=== PATIENT | female | born 1975 | race Caucasian/White ===

== ENCOUNTER 2019-05-11 11:33 | Emergency (ER) | payer OTHER ==
[2019-05-11 11:41] VITALS: BP 125/85; PULSE 94; RESP 16; TEMP 99.1
--- NOTE | 2019-05-11 11:42 | ED ---
ENT HPI - General Chief complaint: Dental/Oral Stated complaint: dental abscess Time Seen by Provider: 05/11/19 11:41 Source: patient Mode of arrival: ambulatory Limitations: no limitations - History of Present Illness Initial comments: 43-year-old female presents today for chief complaint of right upper dental pain. Patient states that she has had dental pain for the past few days. She states that she has had history of abscess of feels as though she is developing one. She states that she does have a dental plate and that sometimes irritates the area. Patient denies any recent antibiotic use within the last month. Patient states that there is no drainage denies fevers difficulty swallowing breathing she denies swelling below the tongue of the neck or face, pt denies any flulike symptoms or rashes. Patient does complain of sharp pain that increases with palpation at tooth #5. Remaining review of system negative. - Related Data Previous Rx's Medication Instructions Recorded Ciprofloxacin HCl [Cipro] 500 mg PO Q12HR #20 tablet 02/16/15 traMADol HCl [Ultram] 50 - 100 mg PO Q6H PRN #20 tab 02/16/15 Penicillin V Potassium [Pen Vee K] 500 mg PO QID 7 Days #28 tablet 05/11/19 Allergies Allergy/AdvReac Type Severity Reaction Status Date / Time morphine Allergy Unknown Verified 05/11/19 11:39 Review of Systems ROS Statement: Those systems with pertinent positive or pertinent negative responses have been documented in the HPI. ROS Other: All systems not noted in ROS Statement are negative. Past Medical History Past Medical History: No Reported History History of Any Multi-Drug Resistant Organisms: None Reported Past Surgical History: Back Surgery, Tubal Ligation Past Psychological History: No Psychological Hx Reported Smoking Status: Current every day smoker Past Alcohol Use History: None Reported Past Drug Use History: Marijuana General Exam - General Exam Comments Initial Comments: General: The patient is awake and alert, in no distress, and does not appear acutely ill. Eye: Pupils are equal, round and reactive to light, extra-ocular movements are intact. No nystagmus. There is normal conjunctiva bilaterally. No signs of icterus. Ears, nose, mouth and throat: There are moist mucous membranes and no oral lesions. Patient has multiple missing teeth the remainder curious, with cracked crowns. Patient does have point localized tenderness over the adjacent mucosa of tooth #5 on the inner aspect. There is no fluctuant abscess or drainage. Patient is is tenderness to percussion. No swelling below the tongue or pain to palpation. The tongue no swelling of the neck or facial tissues. Neck: The neck is supple, there is no tenderness or JVD. Cardiovascular: There is a regular rate and rhythm. No murmur, rub or gallop is appreciated. Respiratory: Lungs are clear to auscultation, respirations are non-labored, breath sounds are equal. No wheezes, stridor, rales, or rhonchi. Musculoskeletal: Normal ROM, no tenderness. Strength 5/5. Sensation intact. Radial pulses equal bilaterally 2+. Neurological: A&O x 3. CN II-XII intact grossly, There are no obvious motor or sensory deficits. Coordination appears grossly intact. Speech is normal. Skin: Skin is warm and dry and no rashes or lesions are noted. Psychiatric: Cooperative, appropriate mood & affect, normal judgment. Limitations: no limitations Course Vital Signs 05/11/19 11:39 Temperature 99.1 F Pulse Rate 94 Respiratory 16 Rate Blood Pressure 125/85 O2 Sat by Pulse 98 Oximetry Medical Decision Making - Medical Decision Making 43-year-old female presenting today for chief complaint of dental pain. Patient states she has had dental pain for the past 2 days. Patient states she has history of abscess. No obvious abscess on physical examination. Patient does have a partial plate. Patient was recommended to avoid using the partial plate and follow up with her dentist. Patient be treated with Penicillin VK. Appropriate use of medications were discussed prior to discharge. Importance of follow-up as well as return parameters were discussed patient was agreeable. Patient was provided a work note patient was discharged well nontoxic, no clinical signs of systemic disease. Afebrile, HR within acceptable limits. BP stable. Disposition Clinical Impression: Pain, dental Disposition: HOME SELF-CARE Condition: Good Instructions (If sedation given, give patient instructions): Dental Abscess (ED) Additional Instructions: Please use medication as discussed. Please follow-up with dentist in next week. Please return to emergency room if the symptoms increase or worsen or for any other concerns, fever, facial swelling, swelling below the tongue, difficulty breathing swallowing, rash. Prescriptions: Penicillin V Potassium [Pen Vee K] 500 mg PO QID 7 Days #28 tablet Is patient prescribed a controlled substance at d/c from ED?: No Referrals: None,Stated [Primary Care Provider] - 1-2 days Time of Disposition: 11:54
[2019-05-11] MEDS ORDERED: ACET/COD 300 MG/30 MG STARTER PACK 6 TAB BTL PO STA (11:52)
[2019-05-11] MEDS ORDERED: PENICILLIN VK 500MG STARTER 4 TAB BTL PO STA (11:53)
== END 2019-05-11 12:26 | disposition home or self-care (01) ==
LOC: EC 11:33
DX: K08.89 Other specified disorders of teeth and supporting structures (principal); F17.200 Nicotine dependence, unspecified, uncomplicated; Z88.5 Allergy status to narcotic agent
CPT/HCPCS: 99282

== ENCOUNTER 2019-06-12 06:56 | Emergency (ER) | payer OTHER ==
[2019-06-12 07:10] VITALS: RESP 18; TEMP 97.8
[2019-06-12] MEDS ORDERED: KETOROLAC 30 MG/ML 1 ML VIAL IVP STA (07:18)
[2019-06-12] MEDS ORDERED: ONDANSETRON 4 MG/2 ML VIAL IVP STA (07:18)
[2019-06-12] MEDS ORDERED: SODIUM CHLORIDE 0.9% 1,000 ML IV STA (07:18)
[2019-06-12] MEDS ORDERED: SODIUM CHLORIDE 0.9% 2,000 ML IV STA (07:18)
[2019-06-12] MEDS ORDERED: HYDROmorphone 1 MG/ML 1 ML SYRINGE IVP STA (07:19)
--- NOTE | 2019-06-12 07:22 | ED ---
Abdominal Pain HPI - General Chief Complaint: Abdominal Pain Stated Complaint: Abd Pain Time Seen by Provider: 06/12/19 07:11 Source: patient, RN notes reviewed, old records reviewed Mode of arrival: wheelchair Limitations: no limitations - History of Present Illness Initial Comments: Patient's a 43-year-old female presents emergency department today with left lower sided abdominal pain and vomiting for the past day. She reports it does radiate towards her back. Sure she had similar episode approximately one week ago. Patient states that symptoms really resolved after she slept through this. Patient states that she's had no changes in her stools. She denies any change in urination. She states she tries to drink lots of water. - Related Data Previous Rx's Medication Instructions Recorded Ciprofloxacin HCl [Cipro] 500 mg PO Q12HR #20 tablet 02/16/15 traMADol HCl [Ultram] 50 - 100 mg PO Q6H PRN #20 tab 02/16/15 Penicillin V Potassium [Pen Vee K] 500 mg PO QID 7 Days #28 tablet 05/11/19 Ibuprofen 600 mg PO TID #30 tablet 06/12/19 Nitrofurantoin Monohyd/M-Cryst 100 mg PO Q12HR #14 cap 06/12/19 [Macrobid] Ondansetron [Zofran ODT] 4 mg PO Q8H #20 tab 06/12/19 Allergies Allergy/AdvReac Type Severity Reaction Status Date / Time morphine Allergy Unknown Verified 06/12/19 07:10 Review of Systems ROS Statement: Those systems with pertinent positive or pertinent negative responses have been documented in the HPI. ROS Other: All systems not noted in ROS Statement are negative. Past Medical History Past Medical History: No Reported History History of Any Multi-Drug Resistant Organisms: None Reported Past Surgical History: Back Surgery, Tubal Ligation Past Psychological History: No Psychological Hx Reported Smoking Status: Current every day smoker Past Alcohol Use History: None Reported Past Drug Use History: Marijuana General Exam - General Exam Comments Initial Comments: 43-year-old female. Alert and oriented 3. Patient appears in no significant distress. Limitations: no limitations General appearance: alert, in no apparent distress Head exam: Present: atraumatic, normocephalic, normal inspection Eye exam: Present: normal appearance, PERRL, EOMI. Absent: scleral icterus, conjunctival injection, periorbital swelling ENT exam: Present: normal exam, mucous membranes moist Neck exam: Present: normal inspection. Absent: tenderness, meningismus, ly mphadenopathy Respiratory exam: Present: normal lung sounds bilaterally. Absent: respiratory distress, wheezes, rales, rhonchi, stridor Cardiovascular Exam: Present: regular rate, normal rhythm, normal heart sounds. Absent: systolic murmur, diastolic murmur, rubs, gallop, clicks GI/Abdominal exam: Present: soft, tenderness (LLQ tenderness), normal bowel sounds. Absent: distended, guarding, rebound, rigid Extremities exam: Present: normal inspection, full ROM, normal capillary refill. Absent: tenderness, pedal edema, joint swelling, calf tenderness Back exam: Present: normal inspection Neurological exam: Present: alert, oriented X3, CN II-XII intact Psychiatric exam: Present: normal affect, normal mood Skin exam: Present: warm, dry, intact, normal color. Absent: rash Course Vital Signs 06/12/19 06/12/19 06/12/19 07:08 07:24 07:40 Temperature 97.8 F Pulse Rate 88 59 L 54 L Respiratory 18 18 Rate Blood Pressure 133/94 150/95 O2 Sat by Pulse 97 98 99 Oximetry 06/12/19 06/12/19 06/12/19 08:00 08:40 09:00 Temperature Pulse Rate 75 Respiratory 18 Rate Blood Pressure 150/95 105/79 105/79 O2 Sat by Pulse 96 Oximetry 06/12/19 10:34 Temperature 97.8 F Pulse Rate 75 Respiratory 18 Rate Blood Pressure 105/79 O2 Sat by Pulse 96 Oximetry Medical Decision Making - Medical Decision Making Patient is a pleasant 43-year-old female, who presented today for nausea and vomiting left-sided abdominal pain for the past day. She reported moderate discomfort. She is given IV fluids and pain medicine labwork obtained. Patient's lab work which shows evidence of leukocytosis. She complains of just general states was not feeling well. Due to the pain we did do CT. CT was completed and negative for any acute nature abdominal process related to left- sided abdominal pain. Small left-sided ovarian cyst, and 1 cm cystlike area over the liver. This can be followed up without ultrasound. Unrelated patien t's acute pain today. Patient was informed of these results. Urinalysis did show some mild signs of infection. Culture will be completed. I discussed the Patient follow-up with her primary care doctor. All questions were answered return parameters were discussed. - Lab Data Result diagrams: 06/12/19 07:27 06/12/19 07:27 Lab Results 06/12/19 06/12/19 06/12/19 Range/Units 07:27 07:27 07:27 WBC 16.4 H (3.8-10.6) k/uL RBC 4.66 (3.80-5.40) m/uL Hgb 14.2 (11.4-16.0) gm/dL Hct 44.9 (34.0-46.0) % MCV 96.2 (80.0-100.0) fL MCH 30.5 (25.0-35.0) pg MCHC 31.7 (31.0-37.0) g/dL RDW 13.2 (11.5-15.5) % Plt Count 316 (150-450) k/uL Neutrophils % 84 % Lymphocytes % 9 % Monocytes % 4 % Eosinophils % 1 % Basophils % 0 % Neutrophils # 13.8 H (1.3-7.7) k/uL Lymphocytes # 1.6 (1.0-4.8) k/uL Monocytes # 0.7 (0-1.0) k/uL Eosinophils # 0.2 (0-0.7) k/uL Basophils # 0.0 (0-0.2) k/uL PT 10.6 (9.0-12.0) sec INR 1.0 (<1.2) APTT 23.7 (22.0-30.0) sec Sodium 140 (137-145) mmol/L Potassium 4.3 (3.5-5.1) mmol/L Chloride 108 H (98-107) mmol/L Carbon Dioxide 22 (22-30) mmol/L Anion Gap 10 mmol/L BUN 14 (7-17) mg/dL Creatinine 1.24 H (0.52-1.04) mg/dL Est GFR (CKD-EPI)AfAm 61 (>60 ml/min/1.73 sqM) Est GFR (CKD-EPI)NonAf 53 (>60 ml/min/1.73 sqM) Glucose 122 H (74-99) mg/dL Calcium 9.7 (8.4-10.2) mg/dL Total Bilirubin 1.0 (0.2-1.3) mg/dL AST 22 (14-36) U/L ALT 27 (9-52) U/L Alkaline Phosphatase 71 (38-126) U/L Total Protein 6.9 (6.3-8.2) g/dL Albumin 4.1 (3.5-5.0) g/dL Amylase 53 (30-110) U/L Lipase 102 (23-300) U/L Urine Color Urine Appearance (Clear) Urine pH (5.0-8.0) Ur Specific [place] (1.001-1.035) Urine Protein (Negative) Urine Glucose (UA) (Negative) Urine Ketones (Negative) Urine Blood (Negative) Urine Nitrite (Negative) Urine Bilirubin (Negative) Urine Urobilinogen (<2.0) mg/dL Ur Leukocyte Esterase (Negative) Urine RBC (0-5) /hpf Urine WBC (0-5) /hpf Ur Squamous Epith Cells (0-4) /hpf Amorphous Sediment (None) /hpf Urine Bacteria (None) /hpf 06/12/19 Range/Units 07:27 WBC (3.8-10.6) k/uL RBC (3.80-5.40) m/uL Hgb (11.4-16.0) gm/dL Hct (34.0-46.0) % MCV (80.0-100.0) fL MCH (25.0-35.0) pg MCHC (31.0-37.0) g/dL RDW (11.5-15.5) % Plt Count (150-450) k/uL Neutrophils % % Lymphocytes % % Monocytes % % Eosinophils % % Basophils % % Neutrophils # (1.3-7.7) k/uL Lymphocytes # (1.0-4.8) k/uL Monocytes # (0-1.0) k/uL Eosinophils # (0-0.7) k/uL Basophils # (0-0.2) k/uL PT (9.0-12.0) sec INR (<1.2) APTT (22.0-30.0) sec Sodium (137-145) mmol/L Potassium (3.5-5.1) mmol/L Chloride (98-107) mmol/L Carbon Dioxide (22-30) mmol/L Anion Gap mmol/L BUN (7-17) mg/dL Creatinine (0.52-1.04) mg/dL Est GFR (CKD-EPI)AfAm (>60 ml/min/1.73 sqM) Est GFR (CKD-EPI)NonAf (>60 ml/min/1.73 sqM) Glucose (74-99) mg/dL Calcium (8.4-10.2) mg/dL Total Bilirubin (0.2-1.3) mg/dL AST (14-36) U/L ALT (9-52) U/L Alkaline Phosphatase (38-126) U/L Total Protein (6.3-8.2) g/dL Albumin (3.5-5.0) g/dL Amylase (30-110) U/L Lipase (23-300) U/L Urine Color Yellow Urine Appearance Cloudy H (Clear) Urine pH 8.5 H (5.0-8.0) Ur Specific [place] 1.017 (1.001-1.035) Urine Protein Trace H (Negative) Urine Glucose (UA) Negative (Negative) Urine Ketones Trace H (Negative) Urine Blood Negative (Negative) Urine Nitrite Negative (Negative) Urine Bilirubin Negative (Negative) Urine Urobilinogen <2.0 (<2.0) mg/dL Ur Leukocyte Esterase Moderate H (Negative) Urine RBC 2 (0-5) /hpf Urine WBC 11 H (0-5) /hpf Ur Squamous Epith Cells 59 H (0-4) /hpf Amorphous Sediment Rare H (None) /hpf Urine Bacteria Occasional H (None) /hpf 06/12/19 08:29 EKG shows sinus bradycardia, sinus arrhythmia, short HI. Otherwise normal EKG. Ventricular rate 53 bpm. HI interval is 106 ms. She lutheran 84 ms. QT QTc is 444/416 ms. - Radiology Data Radiology results: report reviewed X-ray shows on instructed bowel gas pattern. CT shows simple ovarian cyst. Hyperdense mass in the inferior tip of the liver additional ultrasound is recommended follow-up. No suspicious abnormality for left-sided abdominal pain. Disposition Clinical Impression: Nausea & vomiting, UTI (urinary tract infection), Left lateral abdominal pain, Left ovarian cyst, Liver cyst Disposition: HOME SELF-CARE Condition: Good Instructions (If sedation given, give patient instructions): Abdominal Pain (ED) Additional Instructions: Patient advised to take medications as prescribed. Follow-up with your primary care physician. Return to the emergency department if any alarming signs or symptoms occur. Prescriptions: Ibuprofen 600 mg PO TID #30 tablet Nitrofurantoin Monohyd/M-Cryst [Macrobid] 100 mg PO Q12HR #14 cap Ondansetron [Zofran ODT] 4 mg PO Q8H #20 tab Is patient prescribed a controlled substance at d/c from ED?: No Referrals: None,Stated [Primary Care Provider] - 1-2 days Priscilla Ponce MD [STAFF PHYSICIAN] - 1-2 days Time of Disposition: 10:27
[2019-06-12 07:52] LABS: Basophils % (A) 0 %; Eosinophils # (A) 0.2 k/uL (0-0.7); Eosinophils % (A) 1 %; HCT 44.9 % (34.0-46.0); HGB 14.2 gm/dL (11.4-16.0); Lymphocytes # (A) 1.6 k/uL (1.0-4.8); Lymphocytes % (A) 9 %; MCH 30.5 pg (25.0-35.0); MCHC 31.7 g/dL (31.0-37.0); MCV 96.2 fL (80.0-100.0); Mean Platelet Volume 6.6; Monocytes # (A) 0.7 k/uL (0-1.0); Monocytes % (A) 4 %; Neutrophils # (A) 13.8 k/uL (1.3-7.7); Neutrophils % (A) 84 %; Platelet Count 316 k/uL (150-450); RBC 4.66 m/uL (3.80-5.40); RDW 13.2 % (11.5-15.5); WBC 16.4 k/uL (3.8-10.6)
[2019-06-12 08:01] LABS: Partial Thromboplastin Time 23.7 sec (22.0-30.0); Prothrombin Time 10.6 sec (9.0-12.0)
[2019-06-12 08:10] LABS: Albumin 4.1 g/dL (3.5-5.0); Calcium 9.7 mg/dL (8.4-10.2); Potassium 4.3 mmol/L (3.5-5.1); Total Protein 6.9 g/dL (6.3-8.2)
[2019-06-12 08:14] LABS: Amorphous Sediment,Urine Rare /hpf; Appearance,Urine Cloudy (Clear); Bacteria,Urine Occasional /hpf; Bilirubin,Urine Negative (Negative); Blood,Urine Negative (Negative); Color,Urine Yellow; Glucose,Urine (UA) Negative (Negative); Ketones,Urine Trace (Negative); Leukocyte Esterase,Urine Moderate (Negative); Nitrite,Urine Negative (Negative); PH, Urine 8.5 (5.0-8.0); Protein,Urine Trace (Negative); RBC,Urine 2 /hpf (0-5); Specific Gravity,Urine 1.017 (1.001-1.035); Squamous Epithelial Cell,Urine 59 /hpf (0-4); Urobilinogen,Urine <2.0 mg/dL (<2.0); WBC,Urine 11 /hpf (0-5)
--- NOTE | 2019-06-12 08:27 | XR ---
EXAMINATION TYPE: XR KUB DATE OF EXAM: 06/12/2019 8:03 AM CLINICAL HISTORY: Abdominal pain and nausea TECHNIQUE: Single upright image of the abdomen is obtained. COMPARISON: None. FINDINGS: Scattered gas is seen in nondilated small bowel loops. Gas and fecal material is seen in no ndilated colon. There is no pneumoperitoneum appreciated. The lung bases are clear and the osseous st ructures are intact. IMPRESSION: Nonobstructive bowel gas pattern.
[2019-06-12 08:41] VITALS: BP 105/79; PULSE 75
--- NOTE | 2019-06-12 09:26 | CT ---
EXAMINATION TYPE: CT abdomen pelvis w con DATE OF EXAM: 06/12/2019 COMPARISON: None INDICATION: LLQ Abdominal pain DLP: 544.3 mGycm, Automated exposure control for dose reduction was used. CONTRAST: 100 ml mL of Isovue 300. Study performed without Oral Contrast TECHNIQUE: Axial images were obtained from above the diaphragm to the pubic rami in the axial plane a t 5 mm thick sections. Reconstructed images are reviewed on the computer in the coronal plane. FINDINGS: Limited CT sections are obtained the lung bases. The lung bases are clear. CT ABDOMEN: Liver: There is a 1 cm hypodensity within the inferior medial right tip of the liver measuring 52 Ivis nsfield units. Underlying mass should be considered. Spleen: Normal Pancreas: Normal Adrenal glands: The adrenal glands are normal. Gallbladder: Normal Kidneys: No masses are evident. No hydronephrosis is present. There is a 5.4 cm cyst measuring 2 Ho unsfield units at the mid inferior medial pole left Delayed images were obtained through the kidneys , which remain unremarkable. Aorta: Vascular calcification is within the aorta. Inferior vena cava: Normal. CT PELVIS: Loops of bowel within the abdomen and pelvis are normal. There are loops of bowel which are incom pletely distended or lack oral contrast limiting their evaluation. Appendix: Appears to be the appendix is normal as visualized. Urinary bladder: Normal. Genitourinary structures: Uterus is unremarkable. Adnexal regions are clear. Few small follicles. The ovaries. No free fluid is within the pelvis. Osseous structures: No suspicious lytic or sclerotic lesions. IMPRESSIONS: 1. Simple left ovarian cyst. 2. Hypodense mass within the inferior medial tip of the liver. Additional ultrasound is recommended. 3. No suspicious acute abnormality to account for left lower quadrant pain.
== END 2019-06-12 10:35 | disposition home or self-care (01) ==
LOC: EC 06:56
DX: N39.0 Urinary tract infection, site not specified (principal); N83.202 Unspecified ovarian cyst, left side; K76.89 Other specified diseases of liver; R11.2 Nausea with vomiting, unspecified; D72.829 Elevated white blood cell count, unspecified; F17.200 Nicotine dependence, unspecified, uncomplicated; Z98.51 Tubal ligation status; Z88.5 Allergy status to narcotic agent
CPT/HCPCS: 36415; 93005; 80053; 82150; 83690; 85025; 85610; 85730; 81001; 74018; 74177; 99285; 96374; 96375 ×2; 96361 ×3; J2405; J1885; J1170; Q9967

== ENCOUNTER 2019-07-04 16:18 | Emergency (ER) | payer OTHER ==
[2019-07-04 16:25] VITALS: BP 151/91; PULSE 84; RESP 20; TEMP 98.2
--- NOTE | 2019-07-04 17:02 | XR ---
EXAMINATION TYPE: XR forearm RT DATE OF EXAM: 07/04/2019 COMPARISON: NONE HISTORY: 43-year-old female hit arm on table, pain TECHNIQUE: 2 views FINDINGS: Some mild soft tissue swelling along the radial aspect of the mid forearm. No underlying acute fractu re of either radial or ulnar shafts. Wrist and ankle articulations appear grossly intact. IMPRESSION: Some mild radial sided mid forearm soft tissue swelling. No underlying acute osseous abnormality seen .
--- NOTE | 2019-07-04 17:18 | ED ---
General Adult HPI - General Chief complaint: Extremity Injury, Upper Stated complaint: RT ARM INJURY Time Seen by Provider: 07/04/19 16:27 Source: patient Mode of arrival: ambulatory Limitations: no limitations - History of Present Illness Initial comments: Patient is a 43-year-old female presenting to the emergency department with a chief complaint of right forearm pain. Patient reports she had her wrist on a table about 3 days ago. Patient reports swelling along the lateral aspect of the distal right forearm. Patient reports the swelling has gradually decreased however she reports the pain has only slightly decreased. Patient reports limited range of motion with pronation supination of the wrist. Patient denies any numbness or tingling. Patient reports taking [id number] analgesia with minimal improvement. - Related Data Previous Rx's Medication Instructions Recorded Ciprofloxacin HCl [Cipro] 500 mg PO Q12HR #20 tablet 02/16/15 traMADol HCl [Ultram] 50 - 100 mg PO Q6H PRN #20 tab 02/16/15 Penicillin V Potassium [Pen Vee K] 500 mg PO QID 7 Days #28 tablet 05/11/19 Ibuprofen 600 mg PO TID #30 tablet 06/12/19 Nitrofurantoin Monohyd/M-Cryst 100 mg PO Q12HR #14 cap 06/12/19 [Macrobid] Ondansetron [Zofran ODT] 4 mg PO Q8H #20 tab 06/12/19 Allergies Allergy/AdvReac Type Severity Reaction Status Date / Time morphine Allergy Unknown Verified 07/04/19 16:25 Review of Systems ROS Statement: Those systems with pertinent positive or pertinent negative responses have been documented in the HPI. ROS Other: All systems not noted in ROS Statement are negative. Past Medical History Past Medical History: No Reported History History of Any Multi-Drug Resistant Organisms: None Reported Past Surgical History: Back Surgery, Tubal Ligation Past Psychological History: No Psychological Hx Reported Smoking Status: Former smoker Past Alcohol Use History: None Reported Past Drug Use History: Marijuana General Exam Limitations: no limitations General appearance: alert, in no apparent distress Head exam: Present: atraumatic, normocephalic, normal inspection Eye exam: Present: normal appearance Pupils: Present: normal accommodation ENT exam: Present: normal exam Neck exam: Present: normal inspection, full ROM Respiratory exam: Present: normal lung sounds bilaterally Cardiovascular Exam: Present: regular rate, normal rhythm, normal heart sounds Extremities exam: Present: tenderness (Tenderness at the site of swelling.), normal capillary refill, other (+2 ulnar radial pulses bilaterally. Some crepitus noted at the site of injury. No anatomical snuffbox tenderness.). Absent: normal inspection (Swelling along the lateral aspect of the right distal forearm. Difficult to notice any skin discoloration due to tattoo.), full ROM (Limited range of motion with pronation and supination of the right hand.) Back exam: Present: normal inspection, full ROM Neurological exam: Present: alert, oriented X3 Psychiatric exam: Present: normal affect, normal mood Skin exam: Present: warm, intact, normal color Course Vital Signs 07/04/19 16:23 Temperature 98.2 F Pulse Rate 84 Respiratory 20 Rate Blood Pressure 151/91 O2 Sat by Pulse 100 Oximetry Medical Decision Making - Medical Decision Making Patient is a 43-year-old female presenting to the emergency department with a chief complaint of forearm pain. Physical examination is only indicative of some swelling with limited range of motion along the lateral aspect of the right distal forearm. X-ray is only indicative of mild soft tissue swelling with no fracture or dislocations. Rishi wrap applied per patient's request. Patient was to follow with orthopedics and does not improve. Strict return parameters were thoroughly discussed the patient was understanding and agreeable. Case discussed physician. Disposition Clinical Impression: Contusion of forearm, right Disposition: HOME SELF-CARE Condition: Stable Instructions (If sedation given, give patient instructions): Tendon Rupture (ED) Additional Instructions: Apply ice compress to minimize symptoms. Alternate between Tylenol and ibuprofen for pain control. Please return to emergency department if symptoms worsen. Is patient prescribed a controlled substance at d/c from ED?: No Referrals: Ene Woodruff MD [Primary Care Provider] - 1-2 days Time of Disposition: 17:18
== END 2019-07-04 17:29 | disposition home or self-care (01) ==
LOC: EC 16:18
DX: S50.11XA Contusion of right forearm, initial encounter (principal); Z88.5 Allergy status to narcotic agent; Z87.891 Personal history of nicotine dependence; W22.03XA Walked into furniture, initial encounter
CPT/HCPCS: 99283

== ENCOUNTER 2019-11-22 11:59 | Emergency (ER) | payer OTHER ==
[2019-11-22 12:04] VITALS: BP 161/101; PULSE 90; RESP 18; TEMP 97.9
--- NOTE | 2019-11-22 12:30 | ED ---
Female Urogenital HPI - General Chief complaint: Urogenital Stated complaint: Post Op Complications Time Seen by Provider: 11/22/19 12:05 Source: patient Mode of arrival: ambulatory Limitations: no limitations - History of Present Illness Initial comments: Patient is a 44-year-old female presenting to the emergency Department with complaints of a vaginal odor 2 days. Patient states she had a vaginal hysterectomy performed approximately 18 days ago by her [facility] in [place]. Patient states she had a checkup 4 days ago and was doing well. Patient states yesterday she noticed a mild odor and today the odor is worse. Patient states her discharge has also changed to a white yellowish color. She denies any fever or chills. She does admit to mild lower abdominal cramping but no severe pain. She denies nausea or vomiting. She denies dysuria. She has no other complaints at this time. Upon arrival to the ER, her vital signs are stable. - Related Data Previous Rx's Medication Instructions Recorded Ciprofloxacin HCl [Cipro] 500 mg PO Q12HR #20 tablet 02/16/15 traMADol HCl [Ultram] 50 - 100 mg PO Q6H PRN #20 tab 02/16/15 Penicillin V Potassium [Pen Vee K] 500 mg PO QID 7 Days #28 tablet 05/11/19 Ibuprofen 600 mg PO TID #30 tablet 06/12/19 Nitrofurantoin Monohyd/M-Cryst 100 mg PO Q12HR #14 cap 06/12/19 [Macrobid] Ondansetron [Zofran ODT] 4 mg PO Q8H #20 tab 06/12/19 Cephalexin [Keflex] 500 mg PO BID 5 Days #10 cap 11/22/19 metroNIDAZOLE [Flagyl] 500 mg PO BID 7 Days #14 tab 11/22/19 Allergies Allergy/AdvReac Type Severity Reaction Status Date / Time morphine Allergy Unknown Verified 11/22/19 12:04 Review of Systems ROS Statement: Those systems with pertinent positive or pertinent negative responses have been documented in the HPI. ROS Other: All systems not noted in ROS Statement are negative. Past Medical History Past Medical History: No Reported History History of Any Multi-Drug Resistant Organisms: None Reported Past Surgical History: Back Surgery, Tubal Ligation Past Psychological History: No Psychological Hx Reported Smoking Status: Former smoker Past Alcohol Use History: None Reported Past Drug Use History: Marijuana General Exam - General Exam Comments Initial Comments: GENERAL: Well-appearing, well-nourished and in no acute distress. HEAD: Atraumatic, normocephalic. EYES: Pupils equal round and reactive to light, extraocular movements intact, sclera anicteric, conjunctiva are normal. ENT: Moist mucous membranes. NECK: Normal range of motion, supple without lymphadenopathy or JVD. LUNGS: Breath sounds clear to auscultation bilaterally and equal. No wheezes rales or rhonchi. HEART: Regular rate and rhythm without murmurs, rubs or gallops. ABDOMEN: Soft, nontender, normoactive bowel sounds. No guarding, no rebound. No masses appreciated. EXTREMITIES: Normal range of motion, no pitting or edema. No clubbing or cyanosis. NEUROLOGICAL: Normal speech, normal gait. PSYCH: Normal mood, normal affect. SKIN: Warm, Dry, normal turgor, no rashes or lesions noted. Limitations: no limitations External exam: Present: normal external exam Speculum exam: Present: vaginal discharge, other (Cauterized area from recent surgical procedure. No signs of infection.). Absent: vaginal bleeding, foreign body By manual exam: Present: normal by manual exam Course Vital Signs 11/22/19 12:02 Temperature 97.9 F Pulse Rate 90 Respiratory 18 Rate Blood Pressure 161/101 O2 Sat by Pulse 100 Oximetry Medical Decision Making - Medical Decision Making Patient is a 44-year-old female presenting with vaginal discharge and odor 2 days. She had recent vaginal hysterectomy to half weeks ago. Vital signs are stable. Vaginal exam is consistent with bacterial vaginosis. Genital culture is pending at this time. Urine is consistent with a UTI. Patient will be prescribed Flagyl and Keflex for both bacterial vaginosis and UTI. Patient will follow up with [facility]. She stable for discharge. Return parameters were discussed with the patient she verbalized understanding. - Lab Data Lab Results 11/22/19 Range/Units 12:12 Urine Color Light Yellow Urine Appearance Cloudy H (Clear) Urine pH 6.5 (5.0-8.0) Ur Specific [place] 1.003 (1.001-1.035) Urine Protein Negative (Negative) Urine Glucose (UA) Negative (Negative) Urine Ketones Negative (Negative) Urine Blood Small H (Negative) Urine Nitrite Negative (Negative) Urine Bilirubin Negative (Negative) Urine Urobilinogen <2.0 (<2.0) mg/dL Ur Leukocyte Esterase Large H (Negative) Urine RBC 4 (0-5) /hpf Urine WBC 69 H (0-5) /hpf Urine WBC Clumps Moderate H (None) /hpf Ur Squamous Epith Cells 5 H (0-4) /hpf Urine Bacteria Occasional H (None) /hpf Urine Mucus Rare H (None) /hpf Disposition Clinical Impression: Urinary tract infection, Bacterial vaginosis Disposition: HOME SELF-CARE Condition: Stable Instructions (If sedation given, give patient instructions): Bacterial Vaginosis (ED) Additional Instructions: Please return to the Emergency Department if symptoms worsen or any other concerns. Take both medications as prescribed. Follow-up with [facility] if symptoms persist. Prescriptions: metroNIDAZOLE [Flagyl] 500 mg PO BID 7 Days #14 tab Cephalexin [Keflex] 500 mg PO BID 5 Days #10 cap Is patient prescribed a controlled substance at d/c from ED?: No Referrals: Ene Woodruff MD [Primary Care Provider] - 1-2 days
[2019-11-22 12:41] LABS: Appearance,Urine Cloudy (Clear); Bacteria,Urine Occasional /hpf; Bilirubin,Urine Negative (Negative); Blood,Urine Small (Negative); Color,Urine Light Yellow; Glucose,Urine (UA) Negative (Negative); Ketones,Urine Negative (Negative); Leukocyte Esterase,Urine Large (Negative); Mucus,Urine Rare /hpf; Nitrite,Urine Negative (Negative); PH, Urine 6.5 (5.0-8.0); Protein,Urine Negative (Negative); RBC,Urine 4 /hpf (0-5); Specific Gravity,Urine 1.003 (1.001-1.035); Squamous Epithelial Cell,Urine 5 /hpf (0-4); Urobilinogen,Urine <2.0 mg/dL (<2.0); WBC,Urine 69 /hpf (0-5)
== END 2019-11-22 13:21 | disposition home or self-care (01) ==
LOC: EC 11:59
DX: N76.0 Acute vaginitis (principal); N39.0 Urinary tract infection, site not specified; Z88.5 Allergy status to narcotic agent; Z90.710 Acquired absence of both cervix and uterus; Z87.891 Personal history of nicotine dependence; Z98.51 Tubal ligation status
CPT/HCPCS: 81001; 87070; 87086; 99283

== ENCOUNTER 2020-12-19 18:24 | Emergency (ER) | payer OTHER ==
[2020-12-19 18:27] VITALS: TEMP 98.2
[2020-12-19] MEDS ORDERED: SODIUM CHLORIDE 0.9% 1,000 ML IV STA (18:46)
[2020-12-19] MEDS ORDERED: ONDANSETRON 4 MG/2 ML VIAL IVP STA (18:46)
[2020-12-19] MEDS ORDERED: KETOROLAC 15 MG/ML 1 ML VIAL IVP STA (18:46)
[2020-12-19 18:59] LABS: Basophils % (A) 0 %; Eosinophils # (A) 0.2 k/uL (0-0.7); Eosinophils % (A) 1 %; HCT 44.2 % (34.0-46.0); Lymphocytes # (A) 2.2 k/uL (1.0-4.8); Lymphocytes % (A) 16 %; MCV 94.2 fL (80.0-100.0); Mean Platelet Volume 7.3; Monocytes # (A) 0.7 k/uL (0-1.0); Monocytes % (A) 5 %; Neutrophils # (A) 10.5 k/uL (1.3-7.7); Neutrophils % (A) 77 %; Platelet Count 257 k/uL (150-450); RDW 12.2 % (11.5-15.5); WBC 13.8 k/uL (3.8-10.6)
[2020-12-19 19:02] LABS: Appearance,Urine Cloudy (Clear); Bilirubin,Urine Negative (Negative); Blood,Urine Trace (Negative); Color,Urine Colorless; Glucose,Urine (UA) Negative (Negative); Ketones,Urine Negative (Negative); Leukocyte Esterase,Urine Negative (Negative); Nitrite,Urine Negative (Negative); Protein,Urine Negative (Negative); RBC,Urine 1 /hpf (0-5); Specific Gravity,Urine 1.004 (1.001-1.035); Squamous Epithelial Cell,Urine 18 /hpf (0-4); Urobilinogen,Urine <2.0 mg/dL (<2.0); WBC,Urine 1 /hpf (0-5)
[2020-12-19 19:12] LABS: Albumin 4.4 g/dL (3.5-5.0); Calcium 9.5 mg/dL (8.4-10.2); Potassium 3.8 mmol/L (3.5-5.1); Total Bilirubin 0.8 mg/dL (0.2-1.3); Total Protein 7.3 g/dL (6.3-8.2)
--- NOTE | 2020-12-19 19:56 | ED ---
General Adult HPI - General Chief complaint: Abdominal Pain Stated complaint: left side pain Time Seen by Provider: 12/19/20 18:29 Source: patient, RN notes reviewed Mode of arrival: ambulatory Limitations: no limitations - History of Present Illness Initial comments: 45-year-old female presents to the emergency room for a chief complaint of abdominal pain. Patient has had left-sided abdominal pain for the past 2 days. States it seems to worsen with moving around, better with lying still. Patient has had some nausea but denies vomiting. Denies diarrhea. Patient states she has had an ovarian cyst before and it feels somewhat similar. Patient denies fevers but does admit to chills.Patient has no other complaints at this time including shortness of breath, chest pain, vomiting, headache, or visual changes. - Related Data Previous Rx's Medication Instructions Recorded Ondansetron [Zofran ODT] 4 mg PO Q8HR PRN #15 tab 12/19/20 Allergies Allergy/AdvReac Type Severity Reaction Status Date / Time morphine Allergy Unknown Verified 12/19/20 19:23 Review of Systems ROS Statement: Those systems with pertinent positive or pertinent negative responses have been documented in the HPI. ROS Other: All systems not noted in ROS Statement are negative. Past Medical History Past Medical History: No Reported History History of Any Multi-Drug Resistant Organisms: None Reported Past Surgical History: Back Surgery, Hysterectomy, Tubal Ligation Past Psychological History: No Psychological Hx Reported Smoking Status: Current every day smoker Past Alcohol Use History: None Reported Past Drug Use History: Marijuana General Exam Limitations: no limitations General appearance: alert Head exam: Present: atraumatic, normocephalic, normal inspection Eye exam: Present: normal appearance, PERRL, EOMI. Absent: scleral icterus, conjunctival injection, periorbital swelling ENT exam: Present: normal exam, mucous membranes moist Neck exam: Present: normal inspection, full ROM. Absent: tenderness, meningismus, lymphadenopathy Respiratory exam: Present: normal lung sounds bilaterally. Absent: respiratory distress, wheezes, rales, rhonchi, stridor Cardiovascular Exam: Present: regular rate, normal rhythm, normal heart sounds. Absent: systolic murmur, diastolic murmur, rubs, gallop, clicks GI/Abdominal exam: Present: soft, tenderness (LLQ tenderness, no guarding or rebound. no upper abdominal pain.), normal bowel sounds. Absent: distended, guarding, rebound, rigid Course Vital Signs 12/19/20 18:25 Temperature 98.2 F Pulse Rate 85 Respiratory 16 Rate Blood Pressure 137/92 O2 Sat by Pulse 100 Oximetry Medical Decision Making - Medical Decision Making Vitals are stable. Patient is well-appearing however does have some mild left lower quadrant tenderness. No significant CVA tenderness. CBC obtained which does show mild acidosis of 13.8, likely secondary to vomiting. CMP is unremarkable. There is a slight elevation in creatinine, she was given IV fluids. Urinalysis does not show any evidence of infection. Trace blood is noted. CT was obtained which did still severe left-sided hydronephrosis which is slightly worse than old exam. However the left ureter does not appear dilated. This could relate to UPJ obstruction. No calculus is identified. At this time patient is feeling much better after pain medication. I did recommend patient follow up closely with urology. She was given pain medication and antiemetics for home. If she has any worsening symptoms she'll return to the emergency room. - Lab Data Result diagrams: 12/19/20 18:51 12/19/20 18:51 Lab Results 12/19/20 12/19/20 12/19/20 Range/Units 18:51 18:51 18:51 WBC 13.8 H (3.8-10.6) k/uL RBC 4.70 (3.80-5.40) m/uL Hgb 15.0 (11.4-16.0) gm/dL Hct 44.2 (34.0-46.0) % MCV 94.2 (80.0-100.0) fL MCH 32.0 (25.0-35.0) pg MCHC 34.0 (31.0-37.0) g/dL RDW 12.2 (11.5-15.5) % Plt Count 257 (150-450) k/uL MPV 7.3 Neutrophils % 77 % Lymphocytes % 16 % Monocytes % 5 % Eosinophils % 1 % Basophils % 0 % Neutrophils # 10.5 H (1.3-7.7) k/uL Lymphocytes # 2.2 (1.0-4.8) k/uL Monocytes # 0.7 (0-1.0) k/uL Eosinophils # 0.2 (0-0.7) k/uL Basophils # 0.0 (0-0.2) k/uL Sodium 133 L (137-145) mmol/L Potassium 3.8 (3.5-5.1) mmol/L Chloride 99 (98-107) mmol/L Carbon Dioxide 24 (22-30) mmol/L Anion Gap 10 mmol/L BUN 16 (7-17) mg/dL Creatinine 1.10 H (0.52-1.04) mg/dL Est GFR (CKD-EPI)AfAm 69 (>60 ml/min/1.73 sqM) Est GFR (CKD-EPI)NonAf 60 (>60 ml/min/1.73 sqM) Glucose 119 H (74-99) mg/dL Plasma Lactic Acid Cesar (0.7-2.0) mmol/L Calcium 9.5 (8.4-10.2) mg/dL Total Bilirubin 0.8 (0.2-1.3) mg/dL AST 24 (14-36) U/L ALT 18 (4-34) U/L Alkaline Phosphatase 78 (38-126) U/L Total Protein 7.3 (6.3-8.2) g/dL Albumin 4.4 (3.5-5.0) g/dL Amylase 64 (30-110) U/L Lipase 130 (23-300) U/L Urine Color Colorless Urine Appearance Cloudy H (Clear) Urine pH 6.0 (5.0-8.0) Ur Specific [place] 1.004 (1.001-1.035) Urine Protein Negative (Negative) Urine Glucose (UA) Negative (Negative) Urine Ketones Negative (Negative) Urine Blood Trace H (Negative) Urine Nitrite Negative (Negative) Urine Bilirubin Negative (Negative) Urine Urobilinogen <2.0 (<2.0) mg/dL Ur Leukocyte Esterase Negative (Negative) Urine RBC 1 (0-5) /hpf Urine WBC 1 (0-5) /hpf Ur Squamous Epith Cells 18 H (0-4) /hpf 12/19/20 Range/Units 18:51 WBC (3.8-10.6) k/uL RBC (3.80-5.40) m/uL Hgb (11.4-16.0) gm/dL Hct (34.0-46.0) % MCV (80.0-100.0) fL MCH (25.0-35.0) pg MCHC (31.0-37.0) g/dL RDW (11.5-15.5) % Plt Count (150-450) k/uL MPV Neutrophils % % Lymphocytes % % Monocytes % % Eosinophils % % Basophils % % Neutrophils # (1.3-7.7) k/uL Lymphocytes # (1.0-4.8) k/uL Monocytes # (0-1.0) k/uL Eosinophils # (0-0.7) k/uL Basophils # (0-0.2) k/uL Sodium (137-145) mmol/L Potassium (3.5-5.1) mmol/L Chloride (98-107) mmol/L Carbon Dioxide (22-30) mmol/L Anion Gap mmol/L BUN (7-17) mg/dL Creatinine (0.52-1.04) mg/dL Est GFR (CKD-EPI)AfAm (>60 ml/min/1.73 sqM) Est GFR (CKD-EPI)NonAf (>60 ml/min/1.73 sqM) Glucose (74-99) mg/dL Plasma Lactic Acid Cesar 1.1 (0.7-2.0) mmol/L Calcium (8.4-10.2) mg/dL Total Bilirubin (0.2-1.3) mg/dL AST (14-36) U/L ALT (4-34) U/L Alkaline Phosphatase (38-126) U/L Total Protein (6.3-8.2) g/dL Albumin (3.5-5.0) g/dL Amylase (30-110) U/L Lipase (23-300) U/L Urine Color Urine Appearance (Clear) Urine pH (5.0-8.0) Ur Specific [place] (1.001-1.035) Urine Protein (Negative) Urine Glucose (UA) (Negative) Urine Ketones (Negative) Urine Blood (Negative) Urine Nitrite (Negative) Urine Bilirubin (Negative) Urine Urobilinogen (<2.0) mg/dL Ur Leukocyte Esterase (Negative) Urine RBC (0-5) /hpf Urine WBC (0-5) /hpf Ur Squamous Epith Cells (0-4) /hpf - Radiology Data Radiology results: report reviewed, image reviewed Disposition Clinical Impression: Hydronephrosis, Renal cyst Disposition: HOME SELF-CARE Condition: Good Instructions (If sedation given, give patient instructions): Hydronephrosis (ED) Additional Instructions: Please take Tylenol for pain. Pain is irritating Tylenol 3. Take Zofran as needed for nausea. Follow-up with urology. Return to the emergency room for any worsening symptoms. Prescriptions: Ondansetron [Zofran ODT] 4 mg PO Q8HR PRN #15 tab PRN Reason: Nausea Is patient prescribed a controlled substance at d/c from ED?: No Referrals: Ene Woodruff MD [Primary Care Provider] - 1-2 days Gee Lindsay MD [STAFF PHYSICIAN] - 1-2 days Time of Disposition: 20:46
--- NOTE | 2020-12-19 20:21 | CT ---
EXAMINATION TYPE: CT abdomen pelvis w con DATE OF EXAM: 12/19/2020 COMPARISON: 06/12/2019 HISTORY: LUQ pain, vomiting CT DLP: 496.1 mGycm Automated exposure control for dose reduction was used. CONTRAST: Performed with IV Contrast, patient injected with 100 mL of Isovue 300. Lung bases are clear. There is no pleural effusion. Heart size is normal. Liver is intact. The bile ducts are not dilated. Gallbladder appears normal. Spleen is intact. [place] h is intact. There is no evidence of pancreatic mass. There is no adrenal mass. There is severe left-sided hydronephrosis. There is cortical thinning of th e left kidney. There is delayed left side pyelogram. Right kidney shows no hydronephrosis. There is n o retroperitoneal adenopathy. Bladder distends smoothly. There is no inguinal hernia. There is no mark e fluid in the pelvis. There is hysterectomy. I see no evidence of a pelvic mass. There is no mesente carine edema. There is no ascites or free air. There is no bowel obstruction. Appendix is posterior and appears normal. The lumbar vertebra have normal alignment. There is disc space narrowing at L5-S1 with spur formation . There is no compression fracture. Bony pelvis is intact. IMPRESSION: Severe left-sided hydronephrosis which is slightly worse than old exam. Left ureter does not appear d ilated. This could relate to UPJ obstruction. There is left renal mild cortical thinning which is inc reased compared to old exam. There is clearing of the left side perinephric edema compared to old exa m. No calculus identified.
[2020-12-19] MEDS ORDERED: ACET/COD 300 MG/30 MG STARTER PACK 6 TAB BTL PO STA (20:40)
[2020-12-19 21:14] VITALS: BP 124/91; PULSE 87; RESP 18
== END 2020-12-19 21:14 | disposition home or self-care (01) ==
LOC: EC 18:24
DX: N13.30 Unspecified hydronephrosis (principal); N28.1 Cyst of kidney, acquired; F17.200 Nicotine dependence, unspecified, uncomplicated; F12.90 Cannabis use, unspecified, uncomplicated
CPT/HCPCS: 36415; 80053; 82150; 83605; 83690; 85025; 81001; 74177; 99284; 96374; 96375; 96361; J2405; J1885; Q9967

== ENCOUNTER → 2021-01-03 | Outpatient (CLI) | payer OTHER ==
[~2021-01-03] MED LIST: FUROSEMIDE 10 MG/ML 2 ML VIAL IV STA; REGADENOSON 0.4 MG/5 ML SYRINGE IV PRN
--- NOTE | 2021-01-03 14:45 | NM ---
EXAMINATION TYPE: NM lasix renogram DATE OF EXAM: 01/03/2021 COMPARISON: CT scan 12/19/2020 HISTORY: Hydronephrosis Following administration of 10.1 mCi Tc 99m MAG3 with 20mg Lasix. Immediate images post injection FINDINGS: Left: 25.2 %. Right: 74.8 %. Max renal flow left: 9.25 minutes. Max renal flow right: 74.8 minutes. There is delayed uptake and excretion of radiotracer on the left. Perfusion, uptake and excretion on the right within normal limits. T 1/2 left: NA minutes. T 1/2 right: 12.9 minutes. IMPRESSION: 1. Abnormal split renal function of only 25% on the left. 2. Abnormal time activity curve on the left suggestive of obstruction
== END | disposition home or self-care (01) ==
LOC: RADNMMAIN 12:53
PROVIDERS: ATTEND Urology
DX: R94.4 Abnormal results of kidney function studies (principal)
CPT/HCPCS: 78708; A9562

== ENCOUNTER 2022-01-27 13:27 | Emergency (ER) | payer OTHER ==
[2022-01-27 13:34] VITALS: TEMP 98.2
[2022-01-27] MEDS ORDERED: KETOROLAC 15 MG/ML 1 ML VIAL IVP STA (13:43)
[2022-01-27] MEDS ORDERED: SODIUM CHLORIDE 0.9% 500 ML 500 ML IV STA (13:43)
[2022-01-27 14:19] VITALS: RESP 18
--- NOTE | 2022-01-27 14:48 | ED ---
General Adult HPI - General Chief complaint: Abdominal Pain Stated complaint: Kidney pain, vomiting Time Seen by Provider: 01/27/22 13:40 Source: patient, RN notes reviewed, old records reviewed Mode of arrival: wheelchair Limitations: no limitations - History of Present Illness Initial comments: This is a 46-year-old female presents emergency department stating that she has chronic kidney problems and was post to have a procedure done on her ureter but she has refused to do because she doesn't want to do surgery. Patient comes in today because over the last month she's had intermittent left-sided flank pain she continues to have that at this time. Patient denies any recent fever chills or cough per patient denies any nausea vomiting diarrhea per patient denies any abdominal pain. Patient denies any dysuria hematuria urinary frequency. - Related Data Home Medications Medication Instructions Recorded Confirmed L.acidoph,Paracasei, B.lactis 1 cap PO DAILY 01/27/22 01/27/22 [Probiotic] Allergies Allergy/AdvReac Type Severity Reaction Status Date / Time morphine AdvReac Nausea & Verified 01/27/22 16:25 Vomiting Review of Systems ROS Statement: Those systems with pertinent positive or pertinent negative responses have been documented in the HPI. ROS Other: All systems not noted in ROS Statement are negative. Past Medical History Past Medical History: Renal Disease History of Any Multi-Drug Resistant Organisms: None Reported Past Surgical History: Back Surgery, Hysterectomy, Tubal Ligation Past Psychological History: No Psychological Hx Reported Smoking Status: Current every day smoker Past Alcohol Use History: None Reported Past Drug Use History: Marijuana General Exam - General Exam Comments Initial Comments: GENERAL: Patient is well-developed and well-nourished. Patient is nontoxic and well- hydrated and is in mild distress. ENT: Neck is soft and supple. No significant lymphadenopathy is noted. Oropharynx is clear. Moist mucous membranes. Neck has full range of motion without eliciting any pain. EYES: The sclera were anicteric and conjunctiva were pink and moist. Extraocular movements were intact and pupils were equal round and reactive to light. Eyelids were unremarkable. PULMONARY: Unlabored respirations. Good breath sounds bilaterally. No audible rales rhonchi or wheezing was noted. CARDIOVASCULAR: There is a regular rate and rhythm without any murmurs gallops or rubs. ABDOMEN: Soft and nontender with normal bowel sounds. SKIN: Skin is clear with no lesions or rashes and otherwise unremarkable. NEUROLOGIC: Patient is alert and oriented x3. Cranial nerves II through XII are grossly intact. Motor and sensory are also intact. Normal speech, volume and content. Symmetrical smile. MUSCULOSKELETAL: Normal extremities with adequate strength and full range of motion. Patient has mild CVA tenderness on the left LYMPHATICS: No significant lymphadenopathy is noted PSYCHIATRIC: Normal psychiatric evaluation. Limitations: no limitations Course Vital Signs 01/27/22 01/27/22 13:32 14:16 Temperature 98.2 F Pulse Rate 62 63 Respiratory 22 18 Rate Blood Pressure 127/85 141/77 O2 Sat by Pulse 100 98 Oximetry Medical Decision Making - Medical Decision Making I spoke with Dr. Ron he wanted the patient to follow-up I discussed this with the patient and she was in agreement that she would follow-up. - Lab Data Result diagrams: 01/27/22 14:25 01/27/22 14:25 Lab Results 01/27/22 01/27/22 01/27/22 Range/Units 14:25 14:25 14:25 WBC 9.8 (3.8-10.6) k/uL RBC 4.25 (3.80-5.40) m/uL Hgb 13.3 (11.4-16.0) gm/dL Hct 40.9 (34.0-46.0) % MCV 96.3 (80.0-100.0) fL MCH 31.2 (25.0-35.0) pg MCHC 32.4 (31.0-37.0) g/dL RDW 12.5 (11.5-15.5) % Plt Count 230 (150-450) k/uL MPV 7.5 Neutrophils % 85 % Lymphocytes % 11 % Monocytes % 3 % Eosinophils % 1 % Basophils % 0 % Neutrophils # 8.3 H (1.3-7.7) k/uL Lymphocytes # 1.1 (1.0-4.8) k/uL Monocytes # 0.3 (0-1.0) k/uL Eosinophils # 0.1 (0-0.7) k/uL Basophils # 0.0 (0-0.2) k/uL Sodium 137 (137-145) mmol/L Potassium 4.3 (3.5-5.1) mmol/L Chloride 104 (98-107) mmol/L Carbon Dioxide 26 (22-30) mmol/L Anion Gap 7 mmol/L BUN 15 (7-17) mg/dL Creatinine 1.15 H (0.52-1.04) mg/dL Est GFR (CKD-EPI)AfAm 65 (>60 ml/min/1.73 sqM) Est GFR (CKD-EPI)NonAf 57 (>60 ml/min/1.73 sqM) Glucose 129 H (74-99) mg/dL Calcium 9.2 (8.4-10.2) mg/dL Total Bilirubin 0.9 (0.2-1.3) mg/dL AST 30 (14-36) U/L ALT 20 (4-34) U/L Alkaline Phosphatase 73 (38-126) U/L Total Protein 7.1 (6.3-8.2) g/dL Albumin 4.3 (3.5-5.0) g/dL Amylase 61 (30-110) U/L Lipase 60 (23-300) U/L Urine Color Yellow Urine Appearance Cloudy H (Clear) Urine pH 7.5 (5.0-8.0) Ur Specific [place] 1.024 (1.001-1.035) Urine Protein 1+ H (Negative) Urine Glucose (UA) Negative (Negative) Urine Ketones 2+ H (Negative) Urine Blood Negative (Negative) Urine Nitrite Negative (Negative) Urine Bilirubin Negative (Negative) Urine Urobilinogen 2.0 (<2.0) mg/dL Ur Leukocyte Esterase Negative (Negative) Urine RBC 19 H (0-5) /hpf Urine WBC 2 (0-5) /hpf Ur Squamous Epith Cells 20 H (0-4) /hpf Urine Bacteria Rare H (None) /hpf Urine Mucus Few H (None) /hpf Disposition Clinical Impression: Hydronephrosis, left, Chronic left flank pain Disposition: HOME SELF-CARE Condition: Good Is patient prescribed a controlled substance at d/c from ED?: No Referrals: Rafa Dsouza MD [STAFF PHYSICIAN] - 1-2 days Time of Disposition: 16:47
[2022-01-27 14:53] LABS: Basophils % (A) 0 %; Eosinophils # (A) 0.1 k/uL (0-0.7); Eosinophils % (A) 1 %; HCT 40.9 % (34.0-46.0); HGB 13.3 gm/dL (11.4-16.0); Lymphocytes # (A) 1.1 k/uL (1.0-4.8); Lymphocytes % (A) 11 %; MCH 31.2 pg (25.0-35.0); MCHC 32.4 g/dL (31.0-37.0); MCV 96.3 fL (80.0-100.0); Mean Platelet Volume 7.5; Monocytes # (A) 0.3 k/uL (0-1.0); Monocytes % (A) 3 %; Neutrophils # (A) 8.3 k/uL (1.3-7.7); Neutrophils % (A) 85 %; Platelet Count 230 k/uL (150-450); RBC 4.25 m/uL (3.80-5.40); RDW 12.5 % (11.5-15.5); WBC 9.8 k/uL (3.8-10.6)
[2022-01-27 15:17] LABS: Albumin 4.3 g/dL (3.5-5.0); Calcium 9.2 mg/dL (8.4-10.2); Potassium 4.3 mmol/L (3.5-5.1); Total Bilirubin 0.9 mg/dL (0.2-1.3); Total Protein 7.1 g/dL (6.3-8.2)
[2022-01-27 15:28] LABS: Appearance,Urine Cloudy (Clear); Bacteria,Urine Rare /hpf; Bilirubin,Urine Negative (Negative); Blood,Urine Negative (Negative); Color,Urine Yellow; Glucose,Urine (UA) Negative (Negative); Ketones,Urine 2+ (Negative); Leukocyte Esterase,Urine Negative (Negative); Mucus,Urine Few /hpf; Nitrite,Urine Negative (Negative); PH, Urine 7.5 (5.0-8.0); Protein,Urine 1+ (Negative); RBC,Urine 19 /hpf (0-5); Specific Gravity,Urine 1.024 (1.001-1.035); Squamous Epithelial Cell,Urine 20 /hpf (0-4); WBC,Urine 2 /hpf (0-5)
[2022-01-27 17:42] VITALS: BP 148/69; PULSE 82
== END 2022-01-27 17:41 | disposition home or self-care (01) ==
LOC: EC 13:27
DX: N13.30 Unspecified hydronephrosis (principal); F17.200 Nicotine dependence, unspecified, uncomplicated; Z88.5 Allergy status to narcotic agent
CPT/HCPCS: 99284; 96374; 96361; 36415; 80053; 82150; 83690; 85025; 81001; J1885

== ENCOUNTER → 2022-02-21 | Outpatient (CLI) | payer OTHER ==
--- NOTE | 2022-02-21 12:21 | CT ---
EXAMINATION TYPE: CT urogram wo/w con DATE OF EXAM: 02/21/2022 INDICATION: Unspecified hydronephrosis CT DLP: 1508 mGy.cm Automated Exposure Control for Dose Reduction was Utilized. TECHNIQUE AND CONTRAST: CT scan of the abdomen and pelvis is performed without and with IV Contrast, as per CT urogram protoc ol. The patient injected with 100 ml mL of Isovue 300. 3-D reconstruction images were generated on an independent workstation and reviewed COMPARISON: CT dated 12/19/2020 FINDINGS: No definite radiodense urinary calculi. Significant dilatation of the left renal collecting system wi th atrophic changes of the left renal parenchyma denoting chronicity. No definite obstructing stone w ith normal caliber of the left ureter. This may represent sequela of chronic pelviureteric junction o bstruction. Mild excretion of the left kidney into the left renal pelvis. No opacification of the left ureter. No right-sided hydroureter or hydronephrosis. Unremarkable right kidney. No grossly ureteric lesion khurram ntified. Grossly unremarkable urinary bladder. Previous hysterectomy. Left ovarian follicle/cyst tello uring up to 2.3 cm which could be normal for the patient's age. Suspected hepatic hemangioma at the inferior aspect of the right hepatic lobe measuring 18 mm, for ul trasound confirmation. Grossly unremarkable remainder of the liver, gallbladder, spleen, pancreas and adrenals. Unremarkable abdominal aorta and IVC. No pathologically enlarged lymph nodes. Minimal pelv ic fluid. Unremarkable lung bases. Marked degenerative changes at the L5-S1 level with left L5-S1 ayesha ral foraminal stenosis. IMPRESSION: Markedly dilated left renal collecting system with transition seen at the pelviureteric junction, ass ociated with renal parenchymal atrophic changes. This could represent chronic sequela pelviureteric j unction obstruction. Recommend clinical correlation and urology consultation. Further renal scintigra phy can be considered if clinically required. Other findings as described above.
== END | disposition home or self-care (01) ==
LOC: RADCTMAIN 08:43
PROVIDERS: ATTEND Urology
DX: K63.89 Other specified diseases of intestine (principal); N26.1 Atrophy of kidney (terminal)
CPT/HCPCS: 74178; 74400; Q9967

== ENCOUNTER → 2022-02-22 | Outpatient (CLI) | payer OTHER ==
[~2022-02-22] MED LIST changes: +FUROSEMIDE 10 MG/ML 2 ML VIAL IV ONE; -FUROSEMIDE 10 MG/ML 2 ML VIAL IV STA; -REGADENOSON 0.4 MG/5 ML SYRINGE IV PRN
--- NOTE | 2022-02-24 16:09 | NM ---
EXAMINATION TYPE: NM lasix renogram DATE OF EXAM: 02/22/2022 COMPARISON: 01/03/2021 HISTORY: N13.30 Following administration of 10.5 mCi Tc 99m MAG3 with 20mg Lasix. Immediate images post injection FINDINGS: Left: 21.9 %. Right: 78.1 %. Max renal flow left: 29 minutes. Max renal flow right: 78.1 minutes. Satisfactory accumulation of radiotracer within the right renal collecting system. There is poor perf usion and excretion radiotracer from the left. After the administration of Lasix, there is excretion from both collecting systems. No significant excretion change on the left is evident however. T 1/2 left: NA minutes. T 1/2 right: 12.4 minutes minutes. IMPRESSION: 1. Split renal function with 22% left and 78% right similar to the comparison study. 2. Renal function curves pre and post-Lasix are unchanged from the comparison study and can be compat ible with left renal obstruction.
== END | disposition home or self-care (01) ==
LOC: RADNMMAIN 12:42
PROVIDERS: ATTEND Urology
DX: N13.30 Unspecified hydronephrosis (principal)
CPT/HCPCS: 78708; A9562

== ENCOUNTER → 2022-05-17 | Outpatient (CLI) | payer OTHER ==
[2022-05-17 14:41] LABS: Basophils # (A) 0.03 X 10*3/uL (0.00-0.10); Basophils % (A) 0.3 %; Eosinophils # (A) 0.05 X 10*3/uL (0.04-0.35); Eosinophils % (A) 0.5 %; HCT 42.9 % (37.2-46.3); HGB 14.6 g/dL (12.0-15.0); Immature Grans, Automated 0.3 %; Lymphocytes # (A) 3.06 X 10*3/uL (0.90-5.00); Lymphocytes % (A) 29.6 %; MCH 31.6 pg (27.0-32.0); MCV 92.9 fL (80.0-97.0); Mean Platelet Volume 9.8 fL (9.5-12.2); Monocytes # (A) 0.83 X 10*3/uL (0.20-1.00); NRBC Per 100 WBC 0 /100 WBCS (0.0-0.0); Neutrophils # (A) 6.35 X 10*3/uL (1.80-7.70); Neutrophils % (A) 61.3 %; Platelet Count 272 X 10*3/uL (140-440); RBC 4.62 X 10*6/uL (4.10-5.20); RDW 13.5 % (11.5-14.5); WBC 10.35 X 10*3/uL (4.50-10.00)
[2022-05-17 15:38] LABS: African American GFR (CKD) 55.2 (60.0-200.0); BUN/Creat Ratio 12.42 Ratio (12.00-20.00); Blood Urea Nitrogen 16.4 mg/dL (9.0-27.0); Calcium 9.7 mg/dL (8.7-10.3); Carbon Dioxide 26.7 mmol/L (20.0-27.5); Non-African American GFR(CKD) 47.6 (60.0-200.0); Potassium 3.6 mmol/L (3.5-5.5)
[2022-05-17 17:17] LABS: Appearance,Urine Cloudy (Clear); Bilirubin,Urine Negative (Negative); Blood,Urine Negative (Negative); Color,Urine Yellow (Yellow); Ketones,Urine Trace mg/dL (Negative); Nitrite,Urine Negative (Negative); PH, Urine 6.5 (5.0-8.0); Specific Gravity,Urine 1.018 (1.001-1.030)
[2022-05-17 18:17] LABS: Bacteria,Urine None Seen /HPF (None Seen)
== END | disposition home or self-care (01) ==
LOC: LABPAT 08:50
PROVIDERS: ATTEND Urology
DX: Z01.818 Encounter for other preprocedural examination (principal); N13.30 Unspecified hydronephrosis; R94.31 Abnormal electrocardiogram [ECG] [EKG]; R00.1 Bradycardia, unspecified
CPT/HCPCS: 80048; 81001; 85025; 87086; 93005

== ENCOUNTER 2022-05-25 05:52 | Observation (INO) | payer OTHER ==
--- NOTE | 2022-05-19 07:56 | P.HPIHPCON ---
History of Present Illness H&P Date: 05/19/22 Chief Complaint: Left hydronephrosis This is a 46-year-old female with history of severe left-sided hydronephrosis, seen on CT urogram. She is symptomatic from her hydronephrosis. Underwent a Lasix renogram which was consistent with obstruction, and 22% function in the left kidney. Option of a robotic pyeloplasty versus endopyelotomy was discussed with her in detail. She agreed to proceed with a robotic pyeloplasty. Discussed the risk which includes but not limited to bleeding, infection, injury to nearby organs which includes but not limited to the spleen, pancreas, bowel. Discussed also potential recurrence of stricture. Discussed also potential injury to the kidney and conversion to a radical nephrectomy. Discussed also the potential persistent pain even with surgical correction. Discussed also with her the risk of medical complication. She understood all the risk and agreed to proceed with a robotic left side pyeloplasty Consent for Procedure: I have explained the operation/procedure to the patient, including the risks, benefits, side effects, alternative therapies (including not receiving the proposed treatment or service), the likelihood of the patient achieving his/her goals, and potential recuperation problems for the procedure/sedation/analgesia, as well as any blood products, if indicated. I also explained to the patient the risks, benefits and side effects of the alternatives, as well as the risks related to not receiving the proposed procedure, care, treatment, or services. Past Medical History Past Medical History: Osteoarthritis (OA), Renal Disease Additional Past Medical History / Comment(s): left kidney hydronephrosis History of Any Multi-Drug Resistant Organisms: None Reported Past Surgical History: Back Surgery, Hysterectomy, Tubal Ligation Past Anesthesia/Blood Transfusion Reactions: No Reported Reaction Additional Past Anesthesia/Blood Transfusion Reaction / Comment(s): possibly slow to wake up after hyst but not sure Smoking Status: Current every day smoker - Past Family History Mother Family Medical History: No Reported History Medications and Allergies Home Medications Medication Instructions Recorded Confirmed Type L.acidoph,Paracasei, B.lactis 1 cap PO DAILY 01/27/22 05/18/22 History [Probiotic] Acetaminophen Tab [Tylenol Tab] 500 mg PO Q6H PRN 05/18/22 05/18/22 History Multivitamins, Thera [Multivitamin 1 tab PO DAILY 05/18/22 05/18/22 History (formulary)] Allergies Allergy/AdvReac Type Severity Reaction Status Date / Time morphine AdvReac Nausea & Verified 05/18/22 10:55 Vomiting Surgical - Exam - General no distress, moderate pain - Eyes normal ocular movement, no pale - ENT normal nares, normal mucosa - Respiratory normal expansion, normal respiratory effort - Abdomen Abdomen: soft, non tender - Psychiatric oriented to time, oriented to person, oriented to place Assessment and Plan Assessment: OR for robotic left side pyeloplasty
[~2022-05-25 05:52] MED LIST changes: +DEXAMETHASONE SOD PHOSPHATE 4 MG/ML 1 ML VIAL IV ONE; -FUROSEMIDE 10 MG/ML 2 ML VIAL IV ONE; +LIDOCAINE 1% (10MG/ML) FOR IV START INTRADERMA PRN; +ONDANSETRON 4 MG/2 ML VIAL IVP ONE; +SCOPOLAMINE 1 MG/72 HR PATCH TRANSDERM ONE
[2022-05-25] MEDS ORDERED: LIDOCAINE 1% (10MG/ML) FOR IV START INTRADERMA ONE (06:30)
[2022-05-25] MEDS: LACTATED RINGERS 1,000 ML IV SCH (06:30)
[2022-05-25] MEDS ORDERED: HYDROmorphone 0.5 MG/0.5 ML SYRINGE IVP PRN (07:00)
[2022-05-25] MEDS ORDERED: METOCLOPRAMIDE 5 MG/ML 2 ML VIAL IVP PRN (07:00)
[2022-05-25] MEDS ORDERED: fentaNYL (PF) 50 MCG/ML 2 ML AMP IV ONE (07:10)
[2022-05-25] MEDS ORDERED: MIDAZOLAM 2 MG/2 ML VIAL IV ONE (07:10)
[2022-05-25] MEDS ORDERED: NEOSTIGMINE 1 MG/ML 10 ML VIAL ONE (07:23)
[2022-05-25] MEDS ORDERED: HYDROmorphone (PF) 1 MG/ML ONE (07:23)
[2022-05-25] MEDS ORDERED: SODIUM CHLORIDE 0.9% (PF) 10 ML VIAL ONE (07:23)
[2022-05-25] MEDS ORDERED: MIDAZOLAM 2 MG/2 ML VIAL ONE (07:23)
[2022-05-25] MEDS ORDERED: ROPIVACAINE 5 MG/ML 30 ML VIAL ONE (07:23)
[2022-05-25] MEDS ORDERED: PROPOFOL 10 MG/ML 20 ML VIAL IV ONE (07:23)
[2022-05-25] MEDS ORDERED: SUCCINYLCHOLINE CHLORIDE 200 MG/10 ML VIAL IV ONE (07:23)
[2022-05-25] MEDS ORDERED: LIDOCAINE 2% INJ 20 MG/ML (2 ML VIAL) ONE (07:23)
[2022-05-25] MEDS ORDERED: GLYCOPYRROLATE 0.2 MG/ML 2 ML VIAL ONE (07:23)
[2022-05-25] MEDS ORDERED: fentaNYL (PF) 50 MCG/ML 2 ML AMP ONE (07:23)
[2022-05-25] MEDS ORDERED: ROCURONIUM 10 MG/ML (5 ML VIAL) IV ONE (07:23)
--- NOTE | 2022-05-25 08:03 | P.ANPRN ---
Procedure Note - Anesthesia - Nerve Block Performed Bilateral Transversus Abdominis Single Time Out Performed: Yes ([id number]) Date of Procedure: 05/25/22 Procedure Start Time: 07:11 Procedure Stop Time: 07:16 Location of Patient: PreOp Indication: Acute Post-Operative Pain, Requested by Surgeon Specifically requested for management of pain by DrFabian: Rafa Dsouza Sedation Type: Sedate with meaningful contact maintained Preparation: Sterile Prep Position: Supine Catheter: None Needle Types: Pajunk Needle Gauge: 21 Ultrasound used to visualize needle placement: Yes Ultrasound used to observe medication spread: Yes Injectate: 0.5% Ropivacaine (see comment for volume) (15cc + 15cc nacl pf) Blood Aspirated: No Pain Paresthesia on Injection Noted: No Resistance on Injection: Normal Image Stored and Saved: Yes Events: Uneventful and Well Tolerated
[2022-05-25] MEDS ORDERED: LACTATED RINGERS 1,000 ML IV ONE (09:37)
[2022-05-25] MEDS ORDERED: BUPIVACAINE (PF) 0.5% 30 ML VIAL SQ ONE (09:39)
--- NOTE | 2022-05-25 10:28 | P.OP ---
Date of Procedure: 05/25/22 Preoperative Diagnosis: Hydronephrosis Postoperative Diagnosis: Same Procedure(s) Performed: Robotic-assisted laparoscopic pyeloplasty on the left Implants: 6-Rwandan by 28 cm stent in the left ureter Anesthesia: KETTY Surgeon: Rafa Dsouza Selling Specialist #1: Tracie Jane Estimated Blood Loss (ml): 20 Pathology: other (left UPJ) Condition: stable Disposition: PACU Indications for Procedure: This is a 46-year-old female with history of severe left-sided hydronephrosis, seen on CT urogram. She is symptomatic from her hydronephrosis. Underwent a Lasix renogram which was consistent with obstruction, and 22% function in the l eft kidney. Option of a robotic pyeloplasty versus endopyelotomy was discussed with her in detail. She agreed to proceed with a robotic pyeloplasty. Discussed the risk which includes but not limited to bleeding, infection, injury to nearby organs which includes but not limited to the spleen, pancreas, bowel. Discussed also potential recurrence of stricture. Discussed also potential injury to the kidney and conversion to a radical nephrectomy. Discussed also the potential persistent pain even with surgical correction. Discussed also with her the risk of medical complication. She understood all the risk and agreed to proceed with a robotic left side pyeloplasty Operative Findings: Left-sided crossing vessel causing compression of the UPJ Description of Procedure: The patient was taken to the operating room . General anesthesia was induced. She was prepped and draped in sterile fashion, she was placed in modified flank position . All pressure points were padded. The abdominal insufflation was achieved with the Veress needle. A 8 mm camera port was placed. Robotic trocars and phys assistant ports were placed under direct vision. The robot was docked into place. The colon was mobilized medially by incising along the white line of Toldt. At this time the ureter was visualized. The ureter was dissected down all the way up to the UPJ. Caution was taken not to grasp the ureter. At this point a crossing vessel was seen at the UPJ. Next the renal pelvis was dissected out in preparation for the pyeloplasty. Of note there was thickened tissue overlying the renal pelvis and the UPJ which was excised. Once the renal pelvis was mobilized attention was then carried to the pyeloplasty. Next the ureter was dismembered from the renal pelvis. Next the ureter was spatulated. Next the ureter was anastomosed back to the renal pelvis using 4-0V lock in running fashion. The anastomosis was performed anterior to the crossing vessel. Anastomosis was performed using a mucosa to mucosa re approximation, with gentle handling of the ureter with suturing. After completing the posterior portion of the anastomosis a 14-Rwandan Angiocath was placed through the left upper quadrant of the abdomen. Next a sensor wire was advanced through the Angiocath and the wire was advanced down the ureter into the bladder. Next a ureteral stent was passed over the wire. The anterior portion of the anastomosis was completed, and access UPJ tissue was excised and sent to pathology Stent size was 6-Rwandan by 28 cm stent. t. Next a 10-Rwandan flat MAURO was placed through the left lower quadrant incision. The robot was undocked. The phys assistant port was closed using [id number] fashion. Skin was closed with subcuticular sutures and dermabond. The patient was awoken from general anesthesia in stable condition.
[2022-05-25] MEDS: KETOROLAC 15 MG/ML 1 ML VIAL IVP SCH ×2 (11:48→18:25)
[2022-05-25] MEDS: DEXTROSE 5%-0.45% NACL 1,000 ML IV SCH (12:55)
[2022-05-25] MEDS: HYDROcodone/APAP 5-325MG 1 EACH TAB PO PRN (12:58)
[2022-05-25] MEDS: HEPARIN SODIUM,PORCINE/PF 5,000 UNIT/0.5 ML SYRINGE SQ SCH (16:10)
[2022-05-26] MEDS: HEPARIN SODIUM,PORCINE/PF 5,000 UNIT/0.5 ML SYRINGE SQ SCH ×2 (01:14→07:53)
[2022-05-26] MEDS: KETOROLAC 15 MG/ML 1 ML VIAL IVP SCH ×3 (01:15→12:23)
[2022-05-26] MEDS: DEXTROSE 5%-0.45% NACL 1,000 ML IV SCH (01:15)
[2022-05-26 02:32] VITALS: RESP 16; TEMP 98.3
[2022-05-26] MEDS: HYDROcodone/APAP 5-325MG 1 EACH TAB PO PRN (07:37)
[2022-05-26 08:17] VITALS: BP 133/74; PULSE 57
--- NOTE | 2022-05-26 08:22 | P.PN ---
Subjective Progress Note Date: 05/26/22 The patient is in her first postoperative day from a robotic left pyeloplasty. She is a mild to moderate discomfort. She has not eaten very much. Her urine output is good. The drainage is 30 mL and surgery. Her abdomen is soft. I'll discontinue her Lala and her drain. We'll make sure she is tolerating a regular diet and pain is under control before discharge home. I will consider that later today depending on how she does. Vital signs are stable and she is afebrile. Objective - Vital Signs Vital signs: Vital Signs Temp 98.3 F 05/26/22 08:00 Pulse 57 L 05/26/22 08:00 Resp 16 05/26/22 08:00 BP 133/74 05/26/22 08:00 Pulse Ox 100 05/26/22 08:00 FiO2 Intake & Output 05/25/22 05/26/22 05/26/22 18:59 06:59 18:59 Intake Total 1700 Output Total 200 1800 Balance 1500 -1800 Weight 51.1 kg Intake: IV 1700 Output: Drainage 30 Left Lower Anterior Groin 30 Urine 150 1800 Estimated Blood Loss 20
[2022-05-26 13:16] VITALS: BMI 15.7
--- NOTE | 2022-05-26 14:10 | P.DS ---
Providers Date of admission: 05/26/22 01:15 Expected date of discharge: 05/26/22 Attending physician: Rafa Dsouza MD Primary care physician: Stated None Hospital Course: This is a 46-year-old female with history of severe left-sided hydronephrosis, seen on CT urogram. She was symptomatic from her hydronephrosis. Underwent a Lasix renogram which was consistent with obstruction, and 22% function in the left kidney. She is POD #1 from a robotic assisted left pyeloplasty. She is afebrile, tolerating a diet, and ambulating in the hallway. Her chaudhary catheter has been removed and she is voiding without difficulty. She had minimal s erosanguineous drainage from her MAURO drain and it was removed without complication. He staple line is dry and intact. She has had adequate pain control. The plan is to discharge her home. She was given [place] for pain. She iss to follow up in the office with Dr. Dsouza in one week. Patient Condition at Discharge: Good Plan - Discharge Summary Discharge Rx Participant: Yes New Discharge Prescriptions: New HYDROcodone/APAP 5-325MG [[place] 5-325] 1 tab PO Q4HR PRN #10 tab PRN Reason: Pain Control Continue L.acidoph,Paracasei, B.lactis [Probiotic] 1 cap PO DAILY Acetaminophen Tab [Tylenol] 500 mg PO Q6H PRN PRN Reason: Pain Multivitamins, Thera [Multivitamin (formulary)] 1 tab PO DAILY Discharge Medication List L.acidoph,Paracasei, B.lactis [Probiotic] 1 cap PO DAILY 01/27/22 [History] Acetaminophen Tab [Tylenol] 500 mg PO Q6H PRN 05/18/22 [History] Multivitamins, Thera [Multivitamin (formulary)] 1 tab PO DAILY 05/18/22 [History] HYDROcodone/APAP 5-325MG [[place] 5-325] 1 tab PO Q4HR PRN #10 tab 05/26/22 [Rx] Follow up Appointment(s)/Referral(s): Rfaa Dsouza MD [STAFF PHYSICIAN] - 06/05/22 3:00 pm Discharge Disposition: HOME SELF-CARE
== END 2022-05-26 14:48 | disposition home or self-care (01) ==
LOC: OR 05:52 → 4SSUR 12:15 → OR 05-26 01:15
PROVIDERS: ADMIT Urology; ATTEND Urology
DX: N13.0 Hydronephrosis with ureteropelvic junction obstruction (principal); M19.90 Unspecified osteoarthritis, unspecified site; Z98.51 Tubal ligation status; Z90.710 Acquired absence of both cervix and uterus; Z98.890 Other specified postprocedural states; F17.200 Nicotine dependence, unspecified, uncomplicated; K21.9 Gastro-esophageal reflux disease without esophagitis; Z97.2 Presence of dental prosthetic device (complete) (partial); Z88.5 Allergy status to narcotic agent
CPT/HCPCS: 64488; 86900; 86901; 88305; 86850; 50544; G0378; C1769; J2250; J0330; J1100; J2710; J2765; J2405; J3010; J1170; J2795; J1885 ×2; J2704; J1644 ×2; J2001

== ENCOUNTER → 2022-09-22 | Outpatient (CLI) | payer OTHER ==
[~2022-09-22] MED LIST changes: -DEXAMETHASONE SOD PHOSPHATE 4 MG/ML 1 ML VIAL IV ONE; +FUROSEMIDE 10 MG/ML 2 ML VIAL IV ONE; -LIDOCAINE 1% (10MG/ML) FOR IV START INTRADERMA PRN; -ONDANSETRON 4 MG/2 ML VIAL IVP ONE; -SCOPOLAMINE 1 MG/72 HR PATCH TRANSDERM ONE
--- NOTE | 2022-09-22 15:37 | NM ---
EXAMINATION TYPE: NM lasix renogram DATE OF EXAM: 09/22/2022 COMPARISON: NONE HISTORY: Hydronephrosis Following administration of 9.9 mCi Tc 99m MAG3 with 20mg Lasix. Immediate images post injection FINDINGS: Left: 21.9 %. Right: 78.1 %. Max renal flow left: 12 minutes. Max renal flow right: 6.5 minutes. Satisfactory accumulation of radiotracer within both renal collecting systems. After the administrati on of Lasix, there is prompt excretion from both collecting systems. T 1/2 left: 30 minutes minutes. T 1/2 right: 20 minutes minutes. IMPRESSION: 1. The split renal function is exactly the same as the prior study with the majority excreted on the right. 2. T1 halftime of the right kidney is slightly extended from the prior examination currently at 20 mi nutes. 3. There is an extended T1 half time for the left kidney which is an improvement from the prior exam. High-grade obstruction likely present which is an improvement from previous.
== END | disposition home or self-care (01) ==
LOC: RADNMMAIN 13:01
PROVIDERS: ATTEND Urology
DX: N13.30 Unspecified hydronephrosis (principal)
CPT/HCPCS: 78708; A9562

== ENCOUNTER 2023-09-14 07:46 | Emergency (ER) | payer OTHER ==
[2023-09-14 08:01] VITALS: RESP 20; TEMP 98.7
--- NOTE | 2023-09-14 08:03 | ED ---
General Adult HPI - General Chief complaint: Upper Respiratory Infection Stated complaint: SOB, RSV Exposure Source: patient, RN notes reviewed, old records reviewed Mode of arrival: ambulatory Limitations: no limitations - History of Present Illness Initial comments: This is a 48-year-old female who presents to the emergency department stating that she's been exposed to RSV over the last 3 or 4 days she's had some shortness of breath when she is coughing really hard. Patient states she is coughing quite a bit she denies any sputum production. Patient denies any chest pain palpitations. Patient denies any back pain. Patient denies any abdominal pain palpitations nausea vomiting diarrhea. Patient denies any lightheadedness or dizziness. Patient states she's able to eat and drink normally. Patient has a history of smoking quit in January so she does have COPD. - Related Data Home Medications Medication Instructions Recorded Confirmed L.acidoph,Paracasei, B.lactis 1 cap PO DAILY 01/27/22 05/18/22 [Probiotic] Acetaminophen Tab [Tylenol] 500 mg PO Q6H PRN 05/18/22 05/18/22 Multivitamins, Thera [Multivitamin 1 tab PO DAILY 05/18/22 05/18/22 (formulary)] Previous Rx's Medication Instructions Recorded HYDROcodone/APAP 5-325MG [[place] 1 tab PO Q4HR PRN #10 tab 05/26/22 5-325] Allergies Allergy/AdvReac Type Severity Reaction Status Date / Time morphine AdvReac Nausea & Verified 09/14/23 07:50 Vomiting Review of Systems ROS Statement: Those systems with pertinent positive or pertinent negative responses have been documented in the HPI. ROS Other: All systems not noted in ROS Statement are negative. Past Medical History Past Medical History: Renal Disease Additional Past Medical History / Comment(s): left kidney hydronephrosis History of Any Multi-Drug Resistant Organisms: None Reported Past Surgical History: Back Surgery, Hysterectomy, Tubal Ligation Past Anesthesia/Blood Transfusion Reactions: No Reported Reaction Additional Past Anesthesia/Blood Transfusion Reaction / Comment(s): possibly slow to wake up after hyst but not sure Past Psychological History: No Psychological Hx Reported Smoking Status: Former smoker Past Alcohol Use History: None Reported Past Drug Use History: Marijuana - Past Family History Mother Family Medical History: No Reported History General Exam - General Exam Comments Initial Comments: GENERAL: Patient is well-developed and well-nourished. Patient is nontoxic and well- hydrated and is in mild distress. ENT: Neck is soft and supple. No significant lymphadenopathy is noted. Oropharynx is clear. Moist mucous membranes. Neck has full range of motion without eliciting any pain. EYES: The sclera were anicteric and conjunctiva were pink and moist. Extraocular movements were intact and pupils were equal round and reactive to light. Eyelids were unremarkable. PULMONARY: Unlabored respirations. Good breath sounds bilaterally. No audible rales rhonchi or wheezing was noted. CARDIOVASCULAR: There is a regular rate and rhythm without any murmurs gallops or rubs. ABDOMEN: Soft and nontender with normal bowel sounds. SKIN: Skin is clear with no lesions or rashes and otherwise unremarkable. NEUROLOGIC: Patient is alert and oriented x3. Cranial nerves II through XII are grossly intact. Motor and sensory are also intact. Normal speech, volume and content. Symmetrical smile. MUSCULOSKELETAL: Normal extremities with adequate strength and full range of motion. No lower extremity swelling or edema. No calf tenderness. LYMPHATICS: No significant lymphadenopathy is noted PSYCHIATRIC: Normal psychiatric evaluation. Limitations: no limitations Course Vital Signs 09/14/23 09/14/23 09/14/23 07:48 08:08 08:18 Temperature 98.7 F Pulse Rate 99 64 Respiratory 20 20 20 Rate Blood Pressure 164/115 150/107 O2 Sat by Pulse 97 100 Oximetry Medical Decision Making - Medical Decision Making Was pt. sent in by a medical professional or institution (, PA, OXYGEN PLANT OPERATOR, urgent care, hospital, or detention...) When possible be specific @ -No Did you speak to anyone other than the patient for history (EMS, parent, family, police, friend...)? What history was obtained from this source @ -No Did you review nursing and triage notes (agree or disagree)? Why? @ -I reviewed and agree with nursing and triage notes Were old charts reviewed (outside hosp., previous admission, EMS record, old EKG, old radiological studies, urgent care reports/EKG's, detention records)? Report findings @ -I reviewed prior charts apart elaborate on this patient Differential Diagnosis (chest pain, altered mental status, abdominal pain women, abdominal pain men, vaginal bleeding, weakness, fever, dyspnea, syncope, headache, dizziness, GI bleed, back pain, seizure, CVA, palpatations, mental health, musculoskeletal)? @ -COVID, influenza A, influenza B, RSV, pneumonia, bronchitis, this is not an all inclusive list EKG interpreted by me (3pts min.). @ -As above X-rays interpreted by me (1pt min.). @ -Chest x-ray showed no acute abnormality CT interpreted by me (1pt min.). @ -None done U/S interpreted by me (1pt. min.). @ -None done What testing was considered but not performed or refused? (CT, X-rays, U/S, labs)? Why? @ -None What meds were considered but not given or refused? Why? @ -None Did you discuss the management of the patient with other professionals (professionals i.e. , PA, OXYGEN PLANT OPERATOR, lab, RT, psych nurse, social group worker, plastics factory worker, teacher, bsa officer, home health care case manager)? Give summary @ -No Was smoking cessation discussed for >3mins.? @ -No Was critical care preformed (if so, how long)? @ -No Were there social determinants of health that impacted care today? How? (Homelessness, low income, unemployed, alcoholism, drug addiction, transportation, low edu. Level, literacy, decrease access to med. care, residential, rehab)? @ -No Was there de-escalation of care discussed even if they declined (Discuss DNR or withdrawal of care, Hospice)? DNR status @ -No What co-morbidities impacted this encounter? (DM, HTN, Smoking, COPD, CAD, Cance r, CVA, ARF, Chemo, Hep., AIDS, mental health diagnosis, sleep apnea, morbid obesity)? @ -None Was patient admitted / discharged? Hospital course, mention meds given and route, prescriptions, significant lab abnormalities, going to OR and other pertinent info. @ -Vital signs are stable throughout the ED stay. Patient was RSV positive. Patient will be discharged home and told to return if the symptoms worsen Undiagnosed new problem with uncertain prognosis? @ -No Drug Therapy requiring intensive monitoring for toxicity (Heparin, Nitro, Insulin, Cardizem)? @ -No Were any procedures done? @ -No Diagnosis/symptom? @ -RSV Acute, or Chronic, or Acute on Chronic? @ -Acute Uncomplicated (without systemic symptoms) or Complicated (systemic symptoms)? @ -Uncomplicated Side effects of treatment? @ -No Exacerbation, Progression, or Severe Exacerbation? @ -No Poses a threat to life or bodily function? How? (Chest pain, [place], [place], pneumonia, PE, COPD, DKA, ARF, appy, cholecystitis, CVA, Diverticulitis, Homicidal, Suic idal, threat to staff... and all critical care pts) @ -No - Lab Data Lab Results 09/14/23 Range/Units 08:06 Influenza Type A (PCR) Not Detected (Not Detectd) Influenza Type B (PCR) Not Detected (Not Detectd) RSV (PCR) Detected A (Not Detectd) SARS-CoV-2 (PCR) Not Detected (Not Detectd) Disposition Clinical Impression: RSV (acute bronchiolitis due to respiratory syncytial virus) Disposition: HOME SELF-CARE Condition: Good Instructions (If sedation given, give patient instructions): Respiratory Syncytial Virus (ED) Is patient prescribed a controlled substance at d/c from ED?: No Referrals: Tami Osullivan MD [Primary Care Provider] - 1-2 days Time of Disposition: 10:00
--- NOTE | 2023-09-14 08:33 | XR ---
EXAMINATION TYPE: XR chest 2V DATE OF EXAM: 09/14/2023 COMPARISON: 12/03/2021 HISTORY: 48-year-old female shortness of breath, difficulty breathing TECHNIQUE: PA and lateral views FINDINGS: The cardiomediastinal silhouette, aorta, and pulmonary vasculature are within normal limits. Lungs an d pleural spaces are clear. IMPRESSION: No acute cardiopulmonary process.
[2023-09-14 10:30] VITALS: BP 115/68; PULSE 78
== END 2023-09-14 10:19 | disposition home or self-care (01) ==
LOC: EC 07:46
DX: J21.0 Acute bronchiolitis due to respiratory syncytial virus (principal); F12.90 Cannabis use, unspecified, uncomplicated; Z87.891 Personal history of nicotine dependence; Z20.822 Contact with and (suspected) exposure to COVID-19; Z88.5 Allergy status to narcotic agent
CPT/HCPCS: 71046; 87636; 99285

== ENCOUNTER → 2023-11-20 | Outpatient (CLI) | payer OTHER | END | disposition home or self-care (01) | LOC: RADCTMAIN 12:23 | PROVIDERS: ATTEND Family Medicine | DX: Z53.9 Procedure and treatment not carried out, unspecified reason (principal) ==

== ENCOUNTER → 2023-11-20 | Outpatient (CLI) | payer OTHER ==
--- NOTE | 2023-11-20 13:53 | CTL ---
EXAMINATION TYPE: CT Low Dose Lung DATE OF EXAM: 11/20/2023 1:40 PM CLINICAL INDICATION:Female, 48 years old with history of N13.30 UNSPECIFIED HYDRONEPHROSIS; 1PPD x25y rs. , history of tobacco use. COMPARISON: None. TECHNIQUE: Multiple axial non-contrast scans were obtained from approximately the lung apices through the upper abdomen. Coronal and sagittal reformatted images were obtained. Low dose technique was uti lized. CT DLP: 69 mGycm, Automated exposure control for dose reduction was used. CT Contrast: Contrast used: None Oral contrast used: None FINDINGS: ======== Lack of intravenous contrast and low dose technique limits the evaluation of the vascular and soft ti ssue structures. LUNGS: No evidence of pulmonary fibrosis. No evidence of focal consolidation, pneumothorax or pleural effusion. Nodules: RUL: Calcified granuloma series 3 image 53 RML: None. RLL: None. MELANI: None. LLL: None. AIRWAY: Patent and unremarkable. HEART: Size within normal limits. MEDIASTINUM: No gross evidence of adenopathy. VASCULATURE: No aortic aneurysm. MUSCULOSKELETAL: No acute osseous abnormalities SOFT TISSUES/LYMPH NODES: Unremarkable. LOWER NECK: No significant findings. UPPER ABDOMEN: No significant findings. IMPRESSION: No clinically significant pulmonary nodules. CT LUNG RAD AND CT CHEST RECOMMENDATION: Lung-Rad 3 Probably Benign: 6 month follow-up LDCT. S Modifier (other clinically significant findings): None Recommend smoking cessation (if current smoker), or continuation of smoking cessation (if prior smoke r). Annual screening for lung cancer with low-dose computed tomography is recommended in adults ages 55 to 77 years who have a 30 pack-year smoking history and currently smoke or have quit within the pa st 15 years. Screening should be discontinued once a person has not smoked for 15 years or develops a health problem that substantially limits life expectancy or the ability or willingness to have curat jillian lung surgery. Lung rads 2021 [email or web address]
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
== END | disposition home or self-care (01) ==
LOC: RADNMMAIN 12:00
PROVIDERS: ATTEND Urology
DX: N13.30 Unspecified hydronephrosis (principal); N19 Unspecified kidney failure; Z87.891 Personal history of nicotine dependence
CPT/HCPCS: 71271; 78708; A9562

== ENCOUNTER 2023-12-18 19:15 | Emergency (ER) | payer OTHER ==
[2023-12-18 19:46] VITALS: TEMP 98.2
[2023-12-18 21:44] VITALS: BP 147/93; PULSE 78; RESP 16
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
== END 2023-12-18 21:30 | disposition left against medical advice (07) ==
LOC: EC 19:15
DX: M54.2 Cervicalgia (principal); Z53.29 Procedure and treatment not carried out because of patient's decision for other reasons
CPT/HCPCS: 72050; 99499